=== PATIENT | female | born 1970 | race Two or more races ===

== ENCOUNTER 2017-04-10 09:10 | Outpatient (CLI) | payer OTHER, SELFPAY ==
[2017-04-10] VITALS (9 sets, daily range): BP systolic 95–148; BP diastolic 51–73; PULSE 75–89; RESP 16; TEMP 36.5–37.1; O2SAT 97–99; BMI 21.9; BMI 21.6
[2017-04-10 10:19] LABS: Hematocrit 20.5 % (37-47); Hemoglobin 7.1 g/dl (12.0-15.0); Mean Corp Hgb Conc 34.6 g/gl (32-36); Mean Corpuscular Volume 98.1 fL (81-99); Mean Platelet Vol. 8.5 fl (6.2-12.0); Platelet Count 349 K/mm3 (150-450); RBC Distribution Width CV 13.2 % (11.6-14.6); RBC Distribution Width SD 46.8 fl (35.1-43.9); Red Blood Count 2.09 M/mm3 (4.2-5.4); White Blood Count 10.5 K/mm3 (4.4-11.0)
[2017-04-10 10:22] LABS: Scan Indicated on CBC? Y/N NO
[2017-04-10 10:30] LABS: AST(SGOT) 22 U/L (15-37); Alanine Aminotransfer ALT/SGPT 33 U/L (13-56); Creatinine, Serum 0.42 mg/dL (0.55-1.02); EST Glomerular Filtration Rate 170 mL/min (>60); Est Glom Filt Rate - Afr Amer 206 mL/min (>60); Uric Acid 3.7 mg/dL (2.6-6.0)
[2017-04-10 10:35] LABS: International Normalized Ratio 1.1; Prothrombin Time (Protime)PT. 13.5 SECONDS (11.7-14.9)
[2017-04-10 10:36] LABS: Partial Thromboplast Time 28.1 Seconds (24.1-36.2)
[2017-04-10] MEDS: Acetaminophen 500 MG Tablet 1000 MG PO (11:19)
--- NOTE | 2017-04-10 11:51 | NURSING ---
DR LAU NOTIFIED AT 1140 OF PT LAB RESULTS AND WAITING ON PROTEIN/CREATINE RATION RESULTS. PT VOICES HEADACHE WHEN SITTING UP BUT FEELS BETTER WHEN LYING DOWN. WHEN LYING DOWN CAN FEEL HER PULSE THROBBING IN L EAR. NO DIZZINESS OR LIGHTHEADNESS AT THIS TIME. PT DOES VOICE THAT SHE HAD LIGHT HEADEDNESS AND DIZZINESS WHEN AT [facility] WITH HGB OF 8.6. ORDER TO GET ORTHOSTATIC BLOOD PRESSURE AND IF POSITIVE ORDERS GIVEN. IS NEGATIVE CALL DR LAU BACK. ORTHOSTATIC RESULTS NEGATIVE STANDING 137/65 85, SITTING 137/60 80, AND LYING 129/[address] LAU CALLED BACK AT 1152 WITH NEG RESULTS. STATED TO LET PT KNOW SHE WILL BE DOWN WITHIN THE HOUR TO SEE HER. CONTINUE TO MONITOR AT THIS TIME.
[2017-04-10] MEDS: DiphenhydrAMINE 25 MG Capsule 50 MG PO (13:24)
--- NOTE | 2017-04-13 08:44 | NURSING ---
Late entry: Report recieved on pt from Eliza at 1200 on 04/10/17. Pt requesting meal tray, BobSandra stated physcian okay to have pt on regular diet. Pt instructed on placing order. on unit at 1300. in room evaluating pt. requesting to order blood. Pt agrees to plan of blood transfusion 2 units then if pt remains stable and improvement noted will be able to go home post transfusion. Benydrl 50 mg PO given. 1357: Initiated blood transfusion, tolerated well. Pt feels improvement from first unit. 1609: second unit of blood initiated. 1752: Blood transfusion completed. Pt is eager to be discharged. Ambulating well, stating no longer has SEGOVIA or throbbing in ear. Pt's color in lips and face appear pink. Pt tolerated lunch well and placed dinner order.VS stable, pt requesting to be discharged. Called at 1800. Aware blood transfusion completed and pt is feeling significant improvement, no longer feels throbbing in ears. VS stable. Asked regarding if labwork (H & H) needed. stating no labs needed and giving orders to discharge pt to home at this time. Discharge instructions to follow up with farmworker fur and 's office phone number given to pt if pt would need anything. Instructions given to pt and . Verbalized understanding. Pt discharged to home in wheelchair at 1815.
--- NOTE | 2017-04-16 20:07 | OB.TRI.NOTE ---
History of Present Illness Date of Service: 04/10/17 Was patient seen by the physician?: Yes Reason For Visit: POST HEMORRHAGE Date of Service: 04/10/17 History of Present Illness: 46 yo prsents PPD number 4 after a home with headache, dizziness and lightheadedness. She was seen in an ER two days earlier and diagnosed with anemia but didn't receive any blood products. She has had decreased bleeding since then but has persistent headache and feeling exhausted. Home Medications Medication Instructions Recorded Ferrous Sulfate [Iron] 325 mg PO 04/10/17 Grape Seed Extract [Meganatural-Bp] 04/10/17 One Daily Tablet 04/10/17 Allergies sulfamethoxazole [From Bactrim] Allergy (Verified 04/10/17 09:03) Unknown trimethoprim [From Bactrim] Allergy (Verified 04/10/17 09:03) Unknown - Pertinent Past Medical History Pertinent Past Medical History: negative PSH: noncontributory OB History- 6 term dleiveries uncomplicated Physical Exam Vitals: Vital Signs Temp Pulse Resp BP Pulse Ox 98.0 F 75 16 111/55 L 97 04/10/17 17:52 04/10/17 17:52 04/10/17 17:52 04/10/17 17:52 04/10/17 17:52 General: Alert, Oriented x3 Cardiovascular: Regular rate Lungs: Normal air movement Abdomen: Soft, Non Tender Extremities:: No edema Impression/Plan 46 yo with anemia secondary to acute blood loss from delivery. symptomatic- recommend transfusion now and then discharge home. patient agrees.
--- NOTE | 2017-04-16 20:12 | OB.TRI.HP_ITS ---
History of Present Illness Date of Service: 04/10/17 Was patient seen by the physician?: Yes Reason For Visit: POST HEMORRHAGE Date of Service: 04/10/17 History of Present Illness: 46 yo prsents PPD number 4 after a home with headache, dizziness and lightheadedness. She was seen in an ER two days earlier and diagnosed with anemia but didn't receive any blood products. She has had decreased bleeding since then but has persistent headache and feeling exhausted. Home Medications Medication Instructions Recorded Ferrous Sulfate [Iron] 325 mg PO 04/10/17 Grape Seed Extract [Meganatural-Bp] 04/10/17 One Daily Tablet 04/10/17 Allergies sulfamethoxazole [From Bactrim] Allergy (Verified 04/10/17 09:03) Unknown trimethoprim [From Bactrim] Allergy (Verified 04/10/17 09:03) Unknown - Pertinent Past Medical History Pertinent Past Medical History: negative PSH: noncontributory OB History- 6 term dleiveries uncomplicated Physical Exam Vitals: Vital Signs Temp Pulse Resp BP Pulse Ox 98.0 F 75 16 111/55 L 97 04/10/17 17:52 04/10/17 17:52 04/10/17 17:52 04/10/17 17:52 04/10/17 17:52 General: Alert, Oriented x3 Cardiovascular: Regular rate Lungs: Normal air movement Abdomen: Soft, Non Tender Extremities:: No edema Impression/Plan 46 yo with anemia secondary to acute blood loss from delivery. symptomatic - recommend transfusion now and then discharge home. patient agrees.
== END 2017-04-10 18:30 | disposition home or self-care (01) ==
LOC: WPOUT 09:22 → WP 09:23
PROVIDERS: Visit Provider Obstetrics & Gynecology
DX: O72.2 Delayed and secondary postpartum hemorrhage (principal); D62 Acute posthemorrhagic anemia
CPT/HCPCS: 36415; 36430; 82565; 82570; 84156; 84450; 84460; 84550; 85027; 85610; 85730; 86850; 86900; 86920; 86922; 99218; J7030; P9016; A4216; G0378